=== PATIENT | male | born 1955 | race Caucasian/White ===

== ENCOUNTER 2019-09-22 09:38 | Emergency (ER) | payer BC ==
[~2019-09-22] VITALS: Ht 177.8 cm; Wt 83.9 kg
[2019-09-22 09:38] VITALS: BP_SYST 152
--- NOTE | 2019-09-22 09:52 | NUR ---
Ambulatory to hallway bed
--- NOTE | 2019-09-22 09:52 | NUR ---
ER Dr. Ramires at bedside examining patient.
[2019-09-22] MEDS ORDERED: LORazepam 2 MG/ML VIAL IVP ONE (10:00)
[2019-09-22] MEDS ORDERED: ONDANSETRON HCL 4 MG/2 ML VIAL IVP ONE (10:00)
[2019-09-22] MEDS ORDERED: NACL 0.9% 1,000 ML IV ONE (10:00)
--- NOTE | 2019-09-22 10:05 | NUR ---
Pt BIB daughter c/o shaking +nausea after taking tylenol with codiene for tooth infection. Taken 3 doses since last night per RX. NKA. Denies chest pain, denies shortness of breath. No rash or redness noted to body, denies itching.
--- NOTE | 2019-09-22 10:20 | NUR ---
Medicated per MD orders. IVF infusing with no s/s of infiltration at this time. Will cont to monitor
[2019-09-22 12:00] VITALS: BP_SYST 138
--- NOTE | 2019-09-22 12:00 | NUR ---
Patient given written and verbal discharge instructions and verbalizes understanding. ER MD discussed with patient the results and treatment provided. Patient in stable condition. ID arm band removed. IV catheter removed intact and dressing applied, no active bleeding. Rx of xanax 0.5mg given. Patient educated on pain management and to follow up with PMD. Pain Scale 0/10. Opportunity for questions provided and answered. Medication side effect fact sheet provided.
== END 2019-09-22 12:00 | disposition home or self-care (01) ==
LOC: SED 09:38
DX: F41.0 Panic disorder [episodic paroxysmal anxiety] (principal); I10 Essential (primary) hypertension
CPT/HCPCS: 96374; 96375; 99283; J2060; J2405; J7030